=== PATIENT | female | born 1935 | race Caucasian/White ===

== ENCOUNTER 2018-01-22 06:51 | Day surgery (SDC) | payer OTHER ==
[2018-01-22] MEDS ORDERED: NA CHLORIDE 0.9% 1,000 ML ONE (06:58)
[2018-01-22] MEDS ORDERED: NA CHLORIDE 0.9% 0 ML IV ONE (09:33)
[2018-01-22] MEDS ORDERED: NA CHLORIDE 0.9% 50 ML ONE (09:34)
[2018-01-22] MEDS ORDERED: LIDOCAINE 1% W/EPI 1:100,000 MDV 50 ML VIAL ONE (09:34)
[2018-01-22] MEDS ORDERED: VASOPRESSIN 20 UNIT/ML VIAL ONE (09:34)
[2018-01-22] MEDS ORDERED: PROPOFOL 200 MG/20 ML VIAL IV ONE (09:48)
[2018-01-22] MEDS ORDERED: LIDOCAINE 2% MPF 5 ML VIAL ONE (09:51)
[2018-01-22] MEDS ORDERED: FENTANYL CITR 100 MCG/2 ML ONE (09:52)
[2018-01-22] MEDS ORDERED: ONDANSETRON HCL 40 MG/20 ML VIAL ONE (10:02)
[2018-01-22] MEDS ORDERED: CEFAZOLIN SODIUM 1 GM/VIAL ONE (10:48)
[2018-01-22] MEDS: MEPERIDINE HCL 50 MG/ML AMP ONE ×2 (11:01→11:08)
[2018-01-22 12:03] VITALS: BP 142/64; TEMP 97.8; O2SAT 98
== END 2018-01-22 12:40 | disposition home or self-care (01) ==
LOC: OR 06:51
PROVIDERS: ATTEND Obstetrics & Gynecology
PROC: 0UBM0ZZ Excision of Vulva, Open Approach (ICD-10-PCS; principal; 2018-01-22 08:30)
DX: N90.1 Moderate vulvar dysplasia (principal); I50.20 Unspecified systolic (congestive) heart failure; I48.91 Unspecified atrial fibrillation; E11.9 Type 2 diabetes mellitus without complications; E03.9 Hypothyroidism, unspecified
CPT/HCPCS: 11420; 11424; 82962 ×2; 88305; J0690; J2175; J2405; J3010; J7030

== ENCOUNTER 2021-05-10 19:40 | Inpatient (IN) | payer OTHER ==
[2021-05-10 21:21] LABS: Urine Blood 2+ (Negative); Urine Glucose Negative (Negative); Urine Protein 2+ (Negative); Urine pH 5.5 (5.0-7.0)
[2021-05-10 21:23] LABS: Absolute Lymphocytes (CBC) 1.3 K/uL (0.7-4.9); Basophils % 0.6 % (0-1.3); Hematocrit 37.3 % (36.0-45.0); Lymphocytes % 8.5 % (15.3-44.8); MPV 8.3 fL (7.6-11.3); RBC Red Blood Cell Count 4.33 M/uL (3.86-4.86)
[2021-05-10] MEDS ORDERED: NA CHLORIDE 0.9% 500 ML ONE (21:32)
[2021-05-10 21:40] LABS: ALT/SGPT 16 U/L (12-78); AST/SGOT 13 U/L (15-37); Albumin 3.1 g/dL (3.4-5.0); Alkaline Phosphatase 68 U/L (45-117); BUN Blood Urea Nitrogen 25 mg/dL (7-18); Bicarbonate 24 mmol/L (21-32); Bilirubin Direct < 0.1 mg/dL (0-0.2); Bilirubin Total 0.2 mg/dL (0.2-1.0); Glucose Level 152 mg/dL (74-106); Lipase 205 U/L (73-393); Potassium 4.7 mmol/L (3.5-5.1); Protein, Total 7.3 g/dL (6.4-8.2); Sodium Level 138 mmol/L (136-145)
[2021-05-10 21:46] LABS: Urine Bacteria 20-50 /HPF (<20); Urine Mucus 2+ /HPF (NONE SEEN)
[2021-05-10] MEDS ORDERED: CEFTRIAXONE 1000 MG/VIAL ONE (21:57)
--- NOTE | 2021-05-11 00:16 | EDPHYS ---
Physician Documentation [facility] Name: Yumiko Mayes Age: 86 yrs Sex: Female : 1935 Arrival Date: 05/10/2021 Time: 19:45 Bed 24 Private MD: ED Physician David Long HPI: 05/10 20:40 This 86 yrs old Female presents to ER via Ambulatory with complaints of mh7 Urinary Problem, Abdominal Pain. 20:40 The patient presents with urinary symptoms, dysuria. Onset: The symptoms/episode mh7 began/occurred 2 week(s) ago. Modifying factors: The symptoms are alleviated by nothing, the symptoms are aggravated by urinating. Associated signs and symptoms: Pertinent positives: dysuria, nausea, Pertinent negatives: constipation, cramping, diarrhea, fever, hematuria, urinary frequency, vaginal bleeding, vaginal discharge, vomiting. Severity of symptoms: At their worst the symptoms were moderate, 5 day(s) ago, in the emergency department the symptoms are unchanged. The patient has experienced similar episodes in the past, multiple times. Historical: - Allergies: 20:05 No Known Allergies; wg - Home Meds: 21:40 iron 27 mg daily daily [Active]; Vitamin C 1,000 mg oral TbER 1,000 mg daily [Active]; df1 metformin 500 mg Oral tab 1 tab 2 times per day [Active]; flecaide 50 mg BID [Active]; pravastatin 40 mg Oral tab 1 tab once daily [Active]; gemfibrozil 600 mg Oral tab 1 tab 2 times per day [Active]; metoprolol tartrate 50 mg Oral tab 1 tab once daily [Active]; levothyroxine 50 mcg tab 1 tab once daily [Active]; Xarelto 15 mg oral tab 1 tab once daily [Active]; - PMHx: 20:05 Atrial Fib; COPD; Hyperlipidemia; Hypertension; upper GI bleed; wg 21:16 uterine cancer; df1 - PSHx: 21:16 breast implant bilateral; pacemaker; Total abdominal hysterectomy; df1 - Immunization history:: Adult Immunizations up to date. - Social history:: Smoking status: Patient denies any tobacco usage or history of. ROS: 20:40 Constitutional: Negative for fever, chills, and weight loss, Eyes: Negative for injury, mh7 pain, redness, and discharge, ENT: Negative for injury, pain, and discharge, Neck: Negative for injury, pain, and swelling, Cardiovascular: Negative for chest pain, palpitations, and edema, Respiratory: Negative for shortness of breath, cough, wheezing, and pleuritic chest pain, Back: Negative for injury and pain, MS/Extremity: Negative for injury and deformity, Skin: Negative for injury, rash, and discoloration, Neuro: Negative for headache, weakness, numbness, tingling, and seizure, Psych: Negative for depression, anxiety, suicide ideation, homicidal ideation, and hallucinations, Allergy/Immunology: Negative for hives, rash, and allergies, Endocrine: Negative for neck swelling, polydipsia, polyuria, polyphagia, and marked weight changes, Hematologic/Lymphatic: Negative for swollen nodes, abnormal bleeding, and unusual bruising. Exam: 20:40 Constitutional: This is a well developed, well nourished patient who is awake, alert, mh7 and in no acute distress. Head/Face: Normocephalic, atraumatic. Eyes: Pupils equal round and reactive to light, extra-ocular motions intact. Lids and lashes normal. Conjunctiva and sclera are non-icteric and not injected. Cornea within normal limits. Periorbital areas with no swelling, redness, or edema. Neck: Trachea midline, no thyromegaly or masses palpated, and no cervical lymphadenopathy. Supple, full range of motion without nuchal rigidity, or vertebral point tenderness. No Meningismus. Chest/axilla: Normal chest wall appearance and motion. Nontender with no deformity. No lesions are appreciated. Cardiovascular: Regular rate and rhythm with a normal S1 and S2. No gallops, murmurs, or rubs. Normal PMI, no JVD. No pulse deficits. Respiratory: Lungs have equal breath sounds bilaterally, clear to auscultation and percussion. No rales, rhonchi or wheezes noted. No increased work of breathing, no retractions or nasal flaring. Abdomen/GI: Soft, non-tender, with normal bowel sounds. No distension or tympany. No guarding or rebound. No evidence of tenderness throughout. Back: No spinal tenderness. No costovertebral tenderness. Full range of motion. Skin: Warm, dry with normal turgor. Normal color with no rashes, no lesions, and no evidence of cellulitis. MS/ Extremity: Pulses equal, no cyanosis. Neurovascular intact. Full, normal range of motion. Neuro: Awake and alert, GCS 15, oriented to person, place, time, and situation. Cranial nerves II-XII grossly intact. Motor strength 5/5 in all extremities. Sensory grossly intact. Cerebellar exam normal. Normal gait. Psych: Awake, alert, with orientation to person, place and time. Behavior, mood, and affect are within normal limits. Vital Signs: 19:59 BP 124 / 41; Pulse 60; Resp 18; Temp 98.9; Pulse Ox 100% on R/A; Weight 67.59 kg; wg Height 5 ft. 6 in. (167.64 cm); Pain 5/10; 21:15 BP 128 / 47; Pulse 60; Resp 18; Pulse Ox 98% on R/A; df1 22:37 BP 147 / 49; Pulse 61; Resp 18; Pulse Ox 97% on R/A; df1 23:18 BP 132 / 49; Pulse 60; Resp 18; Pulse Ox 96% on R/A; df1 05/11 00:24 BP 136 / 50; Pulse 60; Resp 18; Pulse Ox 100% on R/A; df1 01:17 BP 135 / 50; Pulse 65; Resp 18; Pulse Ox 96% on R/A; df1 05/10 19:59 Body Mass Index 24.05 (67.59 kg, 167.64 cm) MDM: 00:12 Differential diagnosis: kidney stone, malignancy, Neoplasm nonspecific abdominal pain, [facility] urinary tract infection. Data reviewed: vital signs, nurses notes, lab test result(s), CBC, electrolytes, urinalysis, EKG, radiologic studies, CT scan. Data interpreted: Pulse oximetry: on room air is 96 %. Interpretation: normal. Counseling: I had a detailed discussion with the patient and/or guardian regarding: the historical points, exam findings, and any diagnostic results supporting the discharge/admit diagnosis, lab results, radiology results, the need for further work-up and treatment in the hospital. Response to treatment: the patient's symptoms have mildly improved after treatment. 00:16 Patient medically screened. [facility] 05/10 20:07 Order name: Basic Metabolic Panel; Complete Time: 21:50 05/10 20:07 Order name: CBC with Diff; Complete Time: 21:50 05/10 20:07 Order name: Hepatic Function; Complete Time: 21:50 05/10 20:07 Order name: Lipase; Complete Time: 21:50 05/10 20:53 Order name: Urine Microscopic Only [facility] 05/10 20:53 Order name: Urine Culture [facility] 05/10 20:53 Order name: Urine Microscopic Only; Complete Time: 21:50 [facility] 05/10 20:54 Order name: Urine Culture [facility] 05/10 21:21 Order name: Urine Dipstick-Ancillary; Complete Time: 21:22 [facility] 05/10 22:00 Order name: CT Abd/Pelvis - Without Contrast [facility] 05/11 00:28 Order name: COVID-19 : Document "Date of Symptom Onset" if Symptomatic. 3 05/11 01:52 Order name: SARS-COV-2 RT PCR [facility] 05/11 02:14 Order name: CORONAVIRUS [facility] 05/10 20:07 Order name: IV Saline Lock; Complete Time: 21:04 05/10 20:07 Order name: Labs collected and sent; Complete Time: 21:04 05/10 20:07 Order name: Urine Dipstick-Ancillary (obtain specimen); Complete Time: 21:08 05/10 20:07 Order name: Bladder Scanner; Complete Time: 23:07 05/10 22:55 Order name: EKG; Complete Time: 22:55 [facility] 05/10 22:55 Order name: EKG - Nurse/Tech; Complete Time: 23:17 7 Administered Medications: 05/10 21:08 Drug: NS 0.9% 500 ml Route: IV; Rate: bolus; Site: right antecubital; df1 21:58 Follow up: IV Status: Completed infusion; IV Intake: 500ml [facility] 05/11 00:23 Follow up: IV Status: Completed infusion; IV Intake: 500ml [facility] 05/10 21:34 Drug: Rocephin (cefTRIAXone) 1 grams Route: IV; Rate: per protocol; Site: right 1 antecubital; 21:58 Follow up: Response: No adverse reaction; IV Status: Completed infusion df 05/11 00:23 Follow up: Response: No adverse reaction [facility] 00:39 Drug: Cefepime 1 grams Route: IVPB; Rate: 200 ml/hr; Infused Over: 30 mins; Site: right df1 antecubital; 01:16 Follow up: Response: No adverse reaction; IV Status: Completed infusion; IV Intake: df1 100ml Disposition Summary: 05/11/21 00:16 Hospitalization Ordered Hospitalization Status: Inpatient Admission [facility] Provider: Amarjit Freed [facility] Condition: Stable [facility] Problem: new [facility] Symptoms: have improved [facility] Bed/Room Type: Standard [facility] Room Assignment: 219(05/11/21 01:58) mw Diagnosis - UTI/ Urinary tract infection, site not specified [facility] - Leukocytosis [facility] Forms: - Medication Reconciliation Form [facility] - SBAR form [facility] Signatures: Dispatcher [employer] Yumiko Aguirre RN RN mw Attema, Lee, INFORMATION SECURITY SPECIALIST-C INFORMATION SECURITY SPECIALIST-Cla1 David Long MD MD [facility] Rubens Bragg RN wg Furlich, Dawn df1 Corrections: (The following items were deleted from the chart) 01:58 00:16 [facility] mw
--- NOTE | 2021-05-11 00:16 | ER ---
Nurse's Notes [facility] Name: Yumiko Mayes Age: 86 yrs Sex: Female : 1935 Arrival Date: 05/10/2021 Time: 19:45 Bed 24 Private MD: Diagnosis: UTI/ Urinary tract infection, site not specified;Leukocytosis Presentation: 05/10 19:59 Chief complaint: Patient states: Pt states she believes she has a UTI. States she has wg pain in her abdomen/bladder, urgency/frequency and minimal output. Pt states she has decreased fluid retention in her legs. 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 Pt denies any other complaints at this time. Coronavirus screen: Vaccine status: Patient reports receiving the 2nd dose of the covid vaccine. Date October 2020 Client denies travel out of the [place] in the last 14 days. At this time, the client does not indicate any symptoms associated with coronavirus-19. Ebola Screen: Patient negative for fever greater than or equal to 101.5 degrees Fahrenheit, and additional compatible Ebola Virus Disease symptoms Patient denies exposure to infectious person. Patient denies travel to an Ebola-affected area in the 21 days before illness onset. Initial Sepsis Screen: Does the patient meet any 2 criteria? No. Patient's initial sepsis screen is negative. Does the patient have a suspected source of infection? No. Patient's initial sepsis screen is negative. Risk Assessment: Do you want to hurt yourself or someone else? Patient reports no desire to harm self or others. Onset of symptoms was April 26, 2021. 19:59 Method Of Arrival: Ambulatory 19:59 Acuity: AL 3 05/11 01:06 Note Sons contact info Walker Mayes [phone]. df1 Triage Assessment: 05/10 20:05 General: Appears uncomfortable, well groomed, Behavior is calm, cooperative, agitated. wg Pain: Complains of pain in Abdomen/bladder. GI: Reports lower abdominal pain. : Reports burning with urination, inability to void, pain in suprapubic area with urination. Historical: - Allergies: 20:05 No Known Allergies; wg - Home Meds: 21:40 iron 27 mg daily daily [Active]; Vitamin C 1,000 mg oral TbER 1,000 mg daily [Active]; df1 metformin 500 mg Oral tab 1 tab 2 times per day [Active]; flecaide 50 mg BID [Active]; pravastatin 40 mg Oral tab 1 tab once daily [Active]; gemfibrozil 600 mg Oral tab 1 tab 2 times per day [Active]; metoprolol tartrate 50 mg Oral tab 1 tab once daily [Active]; levothyroxine 50 mcg tab 1 tab once daily [Active]; Xarelto 15 mg oral tab 1 tab once daily [Active]; - PMHx: 20:05 Atrial Fib; COPD; Hyperlipidemia; Hypertension; upper GI bleed; wg 21:16 uterine cancer; df1 - PSHx: 21:16 breast implant bilateral; pacemaker; Total abdominal hysterectomy; df1 - Immunization history:: Adult Immunizations up to date. - Social history:: Smoking status: Patient denies any tobacco usage or history of. Screenin:06 Abuse screen: Denies threats or abuse. Nutritional screening: No deficits noted. df1 Tuberculosis screening: No symptoms or risk factors identified. Fall Risk None identified. Assessment: 21:16 GI: Bowel sounds present X 4 quads. Abd is soft and non tender X 4 quads. df1 21:30 General: Appears in no apparent distress. Behavior is calm, cooperative. Pain: Denies df1 pain. Neuro: No deficits noted. Cardiovascular: No deficits noted. Respiratory: No deficits noted. : Reports burning with urination, since 1 week. EENT: No deficits noted. Derm: No deficits noted. Musculoskeletal: No deficits noted. Vital Signs: 19:59 BP 124 / 41; Pulse 60; Resp 18; Temp 98.9; Pulse Ox 100% on R/A; Weight 67.59 kg; wg Height 5 ft. 6 in. (167.64 cm); Pain 5/10; 21:15 BP 128 / 47; Pulse 60; Resp 18; Pulse Ox 98% on R/A; df1 22:37 BP 147 / 49; Pulse 61; Resp 18; Pulse Ox 97% on R/A; df1 23:18 BP 132 / 49; Pulse 60; Resp 18; Pulse Ox 96% on R/A; df1 05/11 00:24 BP 136 / 50; Pulse 60; Resp 18; Pulse Ox 100% on R/A; df1 01:17 BP 135 / 50; Pulse 65; Resp 18; Pulse Ox 96% on R/A; df1 05/10 19:59 Body Mass Index 24.05 (67.59 kg, 167.64 cm) ED Course: 05/10 19:45 Patient arrived in ED. cf2 20:05 Triage completed. 20:05 Arm band placed on left wrist. 20:13 David Long MD is Attending Physician. 7 21:03 Sheri Weldon is Primary Nurse. df1 21:05 Inserted saline lock: 20 gauge in right. df1 21:06 Patient has correct armband on for positive identification. Placed in gown. Bed in low df1 position. Call light in reach. Side rails up X 1. 21:08 Urine Culture Sent. df1 21:08 Urine Microscopic Only Sent. df1 21:08 Basic Metabolic Panel Sent. df1 21:08 CBC with Diff Sent. df1 21:08 Hepatic Function Sent. df1 21:08 Lipase Sent. df1 22:29 CT Abd/Pelvis - Without Contrast In Process Unspecified. EDMS 05/11 00:15 Amarjit Freed DO is Hospitalizing [facility] 01:16 COVID-19 : Document "Date of Symptom Onset" if Symptomatic. Sent. df1 01:18 No provider procedures requiring assistance completed. Patient admitted, IV remains in df1 place. Administered Medications: 05/10 21:08 Drug: NS 0.9% 500 ml Route: IV; Rate: bolus; Site: right antecubital; df1 21:58 Follow up: IV Status: Completed infusion; IV Intake: 500ml df1 05/11 00:23 Follow up: IV Status: Completed infusion; IV Intake: 500ml df1 05/10 21:34 Drug: Rocephin (cefTRIAXone) 1 grams Route: IV; Rate: per protocol; Site: right df1 antecubital; 21:58 Follow up: Response: No adverse reaction; IV Status: Completed infusion df1 05/11 00:23 Follow up: Response: No adverse reaction df1 00:39 Drug: Cefepime 1 grams Route: IVPB; Rate: 200 ml/hr; Infused Over: 30 mins; Site: right df1 antecubital; 01:16 Follow up: Response: No adverse reaction; IV Status: Completed infusion; IV Intake: df1 100ml Intake: 05/10 21:58 IV: 500ml; Total: 500ml. df1 05/11 00:23 IV: 500ml; Total: 1000ml. df1 01:16 IV: 100ml; Total: 1100ml. df1 Outcome: 00:16 Decision to Hospitalize [facility] 02:03 Admitted to Med/surg accompanied by tech. df1 02:03 Condition: stable 02:03 Instructed on the need for admit. 02:43 Patient left the ED. df1 Signatures: Dispatcher [employer] EDMS William Calabrese 2 David Long MD MD 7 Rubens Bragg RN wg Furlich, Dawn df1
[2021-05-11] MEDS ORDERED: CEFEPIME 1 GM/VIAL ONE ×2 (00:51→20:52)
[2021-05-11] MEDS ORDERED: NA CHLORIDE 0.9% 100 ML ONE ×2 (00:51→22:05)
--- NOTE | 2021-05-11 00:58 | P.HP ---
Certification for Inpatient Patient admitted to: Observation With expected LOS: <2 Midnights Patient will require the following post-hospital care: None Practitioner: I am a practitioner with admitting privileges, knowledge of patient current condition, hospital course, and medical plan of care. Services: Services provided to patient in accordance with Admission requirements found in Title 42 Section 412.3 of the Code of Federal Regulations Patient History Date of Service: 05/11/21 History of Present Illness: 86-year-old female with history of atrial fibrillation on chronic anticoagulation therapy, hypertension, hyperlipidemia, hypothyroidism, diabetes mellitus type 2 presents emergency department for dysuria. Patient reports urinary symptoms over the course of the last 2 weeks, does have previous UTIs. Patient was evaluated emergency room and labs are significant for white blood cell count 14.8 with left shift GFR 41 glucose 152 urinalysis with 20-50 janey teria nitrite +,3+ leukoesterase CT abdomen pelvis without contrast demonstrated prominence of the left renal pelvis/calyceal system with no discernible calculi, findings could correspond to recent passage of a calculus and/or partial left UPJ narrowing, minimal perinephric haziness within the left kidney perhaps suggesting fluid, possible pyelonephritis. Patient with history of UTIs in the past with resistant bacteria including Proteus and Enterococcus previously sensitive to cefepime. Patient was given dose of cefepime emergency room by ED provider wishes to admit under observation for further evaluation and management of urinary tract infection. Urine culture obtained. Allergies No Known Drug Allergies Allergy (Verified 01/17/18 13:06) Unknown Home Medications: Gemfibrozil [Lopid] 600 mg PO BID #0 tablet 04/26/12 Pravastatin [Pravachol*] 40 mg PO BEDTIME 07/08/14 Levothyroxine [Synthroid*] 50 mcg PO [id number] 11/08/16 Metformin ER [Glucophage ER*] 500 mg PO BID 11/08/16 Metoprolol Tartrate 50 mg PO [id number] 11/08/16 Omeprazole 40 mg PO DAILY 11/08/16 Ascorbic Acid [Vitamin C] 500 mg PO DAILY 01/17/18 Cholecalciferol (Vitamin D3) [Vitamin D 1000 Iu Tab] 1,000 unit PO DAILY 01/17/18 Ferrous Sulfate [Iron] 325 mg PO DAILY 01/17/18 Flecainide [Tambocor] 50 mg PO BID 01/17/18 Rivaroxaban [Xarelto] 15 mg PO DAILY 01/17/18 - Past Medical/Surgical History Diabetic: No -: hyperlipidemia -: hypothyroidism -: HTN -: Atrial fibrillation on anticoagulation -: Pacemaker -: Diabetes mellitus type 2 -: GERD -: skin cancer -: ovarian cancer -: CKD 3 -: pacemaker -: hysterectomy -: breast implants -: tumor removed from R leg "fatty tumor" -: appy Psychosocial/ Personal History: Lives alone at home - Family History Mother Notes: unsure on mother's medical history Sister -: Lung disease, Cancer Notes: FAther and 2 sister from emphysema, sister had cancer patient does not know which type Father -: Lung disease - Social History Smoking Status: Former smoker Alcohol use: No CD- Drugs: No Caffeine use: Yes Place of Residence: Home Review of Systems 10-point ROS is otherwise unremarkable Genitourinary: Dysuria, Frequency, Urgency, As per HPI Physical Examination - Physical Exam General: Alert, In no apparent distress, Oriented x3 HEENT: Atraumatic, PERRLA, Mucous membr. moist/pink, EOMI, Sclerae nonicteric Neck: Supple, 2+ carotid pulse no bruit, No LAD, Without JVD or thyroid abnormality Respiratory: Clear to auscultation bilaterally, Normal air movement Cardiovascular: Regular rate/rhythm, Normal S1 S2 Gastrointestinal: Normal bowel sounds, No tenderness Musculoskeletal: No tenderness Integumentary: No rashes Neurological: Normal speech, Normal strength at 5/5 x4 extr, Normal tone, Normal affect Lymphatics: No axilla or inguinal lymphadenopathy - Studies Laboratory Data (last 24 hrs) 05/10/21 21:00: WBC 14.80 H, Hgb 12.2, Hct 37.3, Plt Count 341 05/10/21 21:00: Sodium 138, Potassium 4.7, BUN 25 H, Creatinine 1.23, Glucose 152 H, Total Bilirubin 0.2, AST 13 L, ALT 16, Alkaline Phosphatase 68, Lipase 205 Assessment and Plan - Plan Assessment: UTI with history of resistant bacteria-possible early pyelonephritis Atrial fibrillation on chronic anticoagulation therapy Diabetes type 2 with hyperglycemia CKD 3 Hypertension Hyperlipidemia Hypothyroidism Plan: UTI with history of resistant bacteria-possible early pyelonephritis: Previous urine cultures with Proteus/Enterococcus sensitive to cefepime. Continue with IV cefepime at this time urine culture obtained with consult for elevated we will monitor daily labs. Patient without any abdominal or CVA tenderness on exam at this time. Atrial fibrillation on chronic anticoagulation therapy: Continue home medications, monitor on telemetry Diabetes type 2 with hyperglycemia: [facility] Accu-Chek, sliding scale insulin CKD 3: Stable renal function from previous continue with gentle hydration, monitor daily labs Hypertension: Continue home medications Hyperlipidemia:Continue home medications Hypothyroidism:Continue home medications DVT PPX: Continue Xarelto Code status: DNR Discharge Plan: Home Plan to discharge in: 24 Hours - Advance Directives Does patient have a Living Will: No Does patient have a Durable POA for Healthcare: Yes - Code Status/Comfort Care Code Status Assessed: Yes (DNR) Critical Care: No Time Spent Managing Pts Care (In Minutes): 55
[2021-05-11] MEDS ORDERED: ACETAMINOPHEN 500 MG TAB PO PRN (02:14)
[2021-05-11] MEDS ORDERED: ONDANSETRON 4 MG/2 ML VIAL IV PRN (02:14)
[2021-05-11 02:54] VITALS: BMI 24.0
[2021-05-11] MEDS: NA CHLORIDE 0.9% 1,000 ML IV SCH ×2 (03:51→16:51)
--- NOTE | 2021-05-11 06:04 | P.PN ---
Subjective Date of Service: 05/11/21 Primary Care Provider: Dr. Castellanos Subjective: Improving, Doing well Physical Examination - Vital Signs Temperature: 98.6 F Blood Pressure: 150/48 Pulse: 63 Respirations: 16 - Studies Laboratory Data (last 24 hrs) 05/10/21 21:00: WBC 14.80 H, Hgb 12.2, Hct 37.3, Plt Count 341 05/10/21 21:00: Sodium 138, Potassium 4.7, BUN 25 H, Creatinine 1.23, Glucose 152 H, Total Bilirubin 0.2, AST 13 L, ALT 16, Alkaline Phosphatase 68, Lipase 205 Assessment & Plan Discharge Plan: Home Plan to discharge in: 48 Hours Physician Review Additional Text: COVID: negative CT scan: COMPARISON: None TECHNIQUE: Multiple transaxial tomograms of the abdomen and pelvis were performed from the lung bases to the symphysis pubis 5 m slice thickness at 5 mm interval reconstruction, without administration of IV and oral contrast. Multiplanar reformats in the sagittal and coronal plane were generated and reviewed. This exam was performed according to our departmental dose-optimization protocol, which includes automated exposure control, adjustment of the mA and/or kV according to patient size and/or use of iterative reconstruction technique. FINDINGS: The lack of IV and oral contrast limits evaluation of solid organs, subtle lesions cannot be excluded. The lung bases demonstrate to be clear. The heart demonstrate coronary artery calcifications. There is a dual-lead pacemaker in place. Breast implants with the minimal rim wall calcification. Grossly the unopacified liver, gallbladder, pancreas, spleen and adrenal glands demonstrate to be within normal limits, no significant focal lesions were identified. The the right kidney demonstrate to be unremarkable. There is no evidence for nephrolithiasis and/or hydronephrosis. The left kidney demonstrate prominence of the left renal pelvis/calyceal system with no discernible calculi, findings could correspond to recent passage of a calculus and/or partial left UPJ narrowing. There is minimal perinephric haziness within the left kidney perhaps suggesting fluid. Grossly the unopacified stomach, small bowel and large bowel demonstrate to be within normal limits. There is no evidence for bowel dilatation/or free air. The urinary bladder was partially distended with no gross abnormalities. The uterus is absent. There are no adnexal masses The aorta demonstrate atherosclerotic disease extending into the aortic bifurcation. There is no retroperitoneal lymphadenopathy. There is no evidence for ascites. The bone windows demonstrate diffuse bony osteopenia. Degenerative disc disease throughout the lumbar spine. IMPRESSION: Prominence of the left renal pelvis/calyceal system with no discernible calculi, findings could correspond to recent passage of a calculus and/or partial left UPJ narrowing. There is minimal perinephric haziness within the left kidney perhaps suggesting fluid. Atherosclerotic disease of the aorta. Status post hysterectomy. Physical Exam: General: Alert, In no apparent distress, Oriented x3 HEENT: Neck supple Respiratory: Clear to auscultation bilaterally, Normal air movement Cardiovascular: Regular rate/rhythm, Normal S1 S2 Gastrointestinal: Normal bowel sounds, No tenderness Musculoskeletal: No tenderness Integumentary: No rashes Neurological: Normal speech, Normal strength at 5/5 x4 extr, Normal tone, Normal affect Lymphatics: No axilla or inguinal lymphadenopathy Impression: UTI with history of resistant bacteria-possible early pyelonephritis Atrial fibrillation on chronic anticoagulation therapy Diabetes type 2 with hyperglycemia CKD 3 Hypertension Hyperlipidemia Hypothyroidism Plan: UTI with history of resistant bacteria-possible early pyelonephritis: Patient doing at this time. Previous urine culture reviewed. Prior Proteus, Enterococcus in the past. Continue IV cefepime. Await urine culture results. Patient reports improvement. Likely home in the next 24 to 48 hours with urine culture pending. Atrial fibrillation on chronic anticoagulation therapy: Patient in normal rhythm. Continue with home medicationXarelto. Need to obtain restart home medication. Diabetes type 2 with hyperglycemia: Continue Accu-Cheks and sliding scale. CKD 3: Renal function stable. Continue monitor closely. Hypertension: Need to obtain restart home medication Hyperlipidemia: Need to obtain restart home medication Hypothyroidism: Need to obtain restart home medication DVT PPX: Continue Xarelto Code status: DNR Discharge Plan: Home at discharge Time Spent Managing Pts Care (In Minutes): 55
[2021-05-11 06:20] LABS: Absolute Lymphocytes (CBC) 1.2 K/uL (0.7-4.9); Basophils % 0.3 % (0-1.3); Hematocrit 33.2 % (36.0-45.0); MPV 8.2 fL (7.6-11.3); RBC Red Blood Cell Count 3.89 M/uL (3.86-4.86)
[2021-05-11 06:55] LABS: Albumin 2.6 g/dL (3.4-5.0); Bilirubin Total 0.2 mg/dL (0.2-1.0); Potassium 4.3 mmol/L (3.5-5.1); Protein, Total 6.5 g/dL (6.4-8.2); Thyroid Stimulating Hormone 0.413 uIU/mL (0.360-3.740)
[2021-05-11] MEDS: INSULIN -REGULAR HUMAN 50 UNIT/0.5 ML ML SQ SCH ×4 (07:30→21:00)
[2021-05-11] MEDS ORDERED: CEFEPIME 1 GM/VIAL IV SCH (09:00)
[2021-05-11] MEDS: FAMOTIDINE 20 MG TAB PO SCH (11:00)
--- NOTE | 2021-05-11 11:55 | RAD REPORT ---
EXAM DESCRIPTION: CT - Abdomen Pelvis Wo Contrast - 05/11/2021 6:31 am CLINICAL HISTORY: 86 years, Female, Abd pain;Hematuria COMPARISON: None TECHNIQUE: Multiple transaxial tomograms of the abdomen and pelvis were performed from the lung base s to the symphysis pubis 5 m slice thickness at 5 mm interval reconstruction, without administration of IV and oral contrast. Multiplanar reformats in the sagittal and coronal plane were generated and reviewed. This exam was performed according to our departmental dose-optimization protocol, which includes auto mated exposure control, adjustment of the mA and/or kV according to patient size and/or use of iterat grant reconstruction technique. FINDINGS: The lack of IV and oral contrast limits evaluation of solid organs, subtle lesions cannot be excluded. The lung bases demonstrate to be clear. The heart demonstrate coronary artery calcifications. There i s a dual-lead pacemaker in place. Breast implants with the minimal rim wall calcification. Grossly the unopacified liver, gallbladder, pancreas, spleen and adrenal glands demonstrate to be wit hin normal limits, no significant focal lesions were identified. The the right kidney demonstrate to be unremarkable. There is no evidence for nephrolithiasis and/or hydronephrosis. The left kidney demonstrate prominence of the left renal pelvis/calyceal system with no discernible c alculi, findings could correspond to recent passage of a calculus and/or partial left UPJ narrowing. There is minimal perinephric haziness within the left kidney perhaps suggesting fluid. Grossly the unopacified stomach, small bowel and large bowel demonstrate to be within normal limits. There is no evidence for bowel dilatation/or free air. The urinary bladder was partially distended with no gross abnormalities. The uterus is absent. There are no adnexal masses The aorta demonstrate atherosclerotic disease extending into the aortic bifurca tion. There is no retroperitoneal lymphadenopathy. There is no evidence for ascites. The bone win dows demonstrate diffuse bony osteopenia. Degenerative disc disease throughout the lumbar spine. IMPRESSION: Prominence of the left renal pelvis/calyceal system with no discernible calculi, finding s could correspond to recent passage of a calculus and/or partial left UPJ narrowing. There is minima l perinephric haziness within the left kidney perhaps suggesting fluid. Atherosclerotic disease of the aorta. Status post hysterectomy. Electronically signed by: Gregg Parks MD 05/10/2021 10:46 PM CDT Due to temporary technical issues with the PACS/Fluency reporting system, reports are being signed by the in house radiologists without review as a courtesy to insure prompt reporting. The interpreting radiologist is fully responsible for the content of the report.
[2021-05-11] MEDS ORDERED: NA CHLORIDE 0.9% 250 ML IV ONE (16:35)
[2021-05-11] MEDS: FLECAINIDE 100 MG TAB PO SCH (16:51)
--- NOTE | 2021-05-11 16:58 | EKG ---
Test Date: 2021-05-10 Test Time: 23:13:08 Big Machine Consultant: ANA MEASUREMENT RESULTS: Intervals: Rate: 60 VT: QRSD: 88 QT: 440 QTc: 440 [place]: P: VT: QRS: 118 T: 83 INTERPRETIVE STATEMENTS: Junctional rhythm Left posterior fascicular block Cannot rule out Anterior infarct, age undetermined Abnormal ECG Compared to ECG 11/08/2016 12:24:37 Junctional rhythm now present Left posterior fascicular block now present Sinus rhythm no longer present Myocardial infarct finding still present Electronically Signed On 05-11-21 16:57:49 CDT by Dionicio Patterson
[2021-05-11] MEDS ORDERED: NA CHLORIDE 0.9% 500 ML IV ONE (17:00)
[2021-05-11] MEDS ORDERED: NA CHLORIDE 0.9% 250 ML IV PRN (17:38)
[2021-05-11] MEDS: RIVAROXABAN 15 MG TABLET PO SCH (18:48)
[2021-05-11] MEDS: gemfibroziL 600 MG TAB PO SCH (20:26)
[2021-05-11] MEDS: ATORVASTATIN 10 MG TAB PO SCH (20:26)
[2021-05-11] MEDS ORDERED: FLECAINIDE 100 MG TAB PO SCH (21:00)
[2021-05-11] MEDS ORDERED: HOME MED 1 EA UNK (Pravastatin [Pravachol*] 40 MG/TAB Tab) PO SCH (21:00)
[2021-05-11] MEDS: CEFEPIME 1 GM/100 ML BAG IV SCH (21:44)
[2021-05-12] MEDS ORDERED: METOPROLOL TARTRATE 5 MG/5 ML INJ IV STA (00:12)
[2021-05-12] MEDS: LEVOTHYROXINE SOD 0.05 MG TABLET PO SCH (05:20)
[2021-05-12] MEDS: NA CHLORIDE 0.9% 1,000 ML IV SCH (05:20)
[2021-05-12] MEDS: METOPROLOL TAR 50 MG TAB PO SCH (05:20)
--- NOTE | 2021-05-12 05:59 | P.PN ---
Subjective Date of Service: 05/12/21 Primary Care Provider: Dr. Castellanos Subjective: Improving (Anxiety noted today. Overall stable.) Physical Examination - Vital Signs Temperature: 98.7 F Blood Pressure: 128/61 Pulse: 109 Respirations: 20 Pulse Ox (%): 90 Assessment & Plan Discharge Plan: Home Plan to discharge in: 24 Hours Physician Review Additional Text: COVID: negative CT scan: COMPARISON: None TECHNIQUE: Multiple transaxial tomograms of the abdomen and pelvis were performed from the lung bases to the symphysis pubis 5 m slice thickness at 5 mm interval reconstruction, without administration of IV and oral contrast. Multiplanar reformats in the sagittal and coronal plane were generated and reviewed. This exam was performed according to our departmental dose-optimization protocol, which includes automated exposure control, adjustment of the mA and/or kV according to patient size and/or use of iterative reconstruction technique. FINDINGS: The lack of IV and oral contrast limits evaluation of solid organs, subtle lesions cannot be excluded. The lung bases demonstrate to be clear. The heart demonstrate coronary artery calcifications. There is a dual-lead pacemaker in place. Breast implants with the minimal rim wall calcification. Grossly the unopacified liver, gallbladder, pancreas, spleen and adrenal glands demonstrate to be within normal limits, no significant focal lesions were identified. The the right kidney demonstrate to be unremarkable. There is no evidence for nephrolithiasis and/or hydronephrosis. The left kidney demonstrate prominence of the left renal pelvis/calyceal system with no discernible calculi, findings could correspond to recent passage of a calculus and/or partial left UPJ narrowing. There is minimal perinephric haziness within the left kidney perhaps suggesting fluid. Grossly the unopacified stomach, small bowel and large bowel demonstrate to be within normal limits. There is no evidence for bowel dilatation/or free air. The urinary bladder was partially distended with no gross abnormalities. The uterus is absent. There are no adnexal masses The aorta demonstrate atherosclerotic disease extending into the aortic bifurcation. There is no retroperitoneal lymphadenopathy. There is no evidence for ascites. The bone windows demonstrate diffuse bony osteopenia. Degenerative disc disease throughout the lumbar spine. IMPRESSION: Prominence of the left renal pelvis/calyceal system with no discernible calculi, findings could correspond to recent passage of a calculus and/or partial left UPJ narrowing. There is minimal perinephric haziness within the left kidney perhaps suggesting fluid. Atherosclerotic disease of the aorta. Status post hysterectomy. Physical Exam: General: Alert, In no apparent distress, Oriented x3 HEENT: Neck supple Respiratory: Clear to auscultation bilaterally, Normal air movement Cardiovascular: Atrial fibrillation rate around 100 Gastrointestinal: Normal bowel sounds, No tenderness Musculoskeletal: No tenderness Integumentary: No rashes Neurological: Normal speech, Normal strength at 5/5 x4 extr, Normal tone, Normal affect Lymphatics: No axilla or inguinal lymphadenopathy Impression: UTI with history of resistant bacteria-possible early pyelonephritis, urine culture positive for gram-negative rods Atrial fibrillation on chronic anticoagulation therapy Diabetes type 2 with hyperglycemia Acute on CKD 3 Hypertension Hyperlipidemia Hypothyroidism GERD Anxiety Plan: UTI with history of resistant bacteria-possible early pyelonephritis, urine culture positive for gram-negative rods: Patient improved today. Await urine culture results. Prior cultures show Proteus and Enterococcus. Continue IV antibiotic therapy. Case discussed in detail with patient and son. We will physical therapy assess ambulation. Patient has home health and physical therapy. This will need to be continued at discharge. Some anxiety noted. Provide medication for anxiety. Anticipate likely discharge tomorrow. Atrial fibrillation on chronic anticoagulation therapy: Patient had accelerated heart rate yesterday as medication from home needed to be restarted. Medication reviewed. Patient to continue flecainide 50 twice daily and metoprolol 50 daily. Patient also on Xarelto 15 mg daily. Diabetes type 2 with hyperglycemia: Continue sliding scale Acute on CKD 3: Renal function improved with IV fluid hydration. Will discont inue IV fluids. 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 Hypertension: Continue metoprolol 50 mg daily Hyperlipidemia: Continue Lopid 600 mg 1 pill twice daily Hypothyroidism: Continue levothyroxine 50 mcg daily GERD: Continue with Prilosec daily Anxiety: We will provide Xanax as needed DVT PPX: Continue Xarelto Code status: DNR Discharge Plan: Continue home health and physical therapy at discharge Time Spent Managing Pts Care (In Minutes): 55
[2021-05-12 06:39] LABS: Absolute Lymphocytes (CBC) 1.1 K/uL (0.7-4.9); Basophils % 0.5 % (0-1.3); Hematocrit 35.9 % (36.0-45.0); Lymphocytes % 8.7 % (15.3-44.8); MPV 8.3 fL (7.6-11.3); RBC Red Blood Cell Count 4.16 M/uL (3.86-4.86)
[2021-05-12 07:04] LABS: Albumin 2.4 g/dL (3.4-5.0); Bilirubin Total 0.3 mg/dL (0.2-1.0); Protein, Total 6.5 g/dL (6.4-8.2)
[2021-05-12] MEDS: INSULIN -REGULAR HUMAN 50 UNIT/0.5 ML ML SQ SCH ×4 (07:30→20:26)
[2021-05-12 08:10] LABS: Platelet Estimate ADEQ; Platelets, Giant FEW
[2021-05-12 08:11] LABS: Blood Morphology Comment NOT SEEN (NOT SEEN)
[2021-05-12] MEDS: VITAMIN D 1000 UNIT TAB PO SCH (08:19)
[2021-05-12] MEDS: gemfibroziL 600 MG TAB PO SCH ×2 (08:19→21:12)
[2021-05-12] MEDS: FLECAINIDE 100 MG TAB PO SCH ×2 (08:19→21:12)
[2021-05-12] MEDS: FAMOTIDINE 20 MG TAB PO SCH (08:19)
[2021-05-12] MEDS: ASCORBIC ACID 500 MG TABLET PO SCH (08:19)
--- NOTE | 2021-05-12 11:43 | P.CNS ---
Date of Consult: 05/12/21 Reason for Consult: ARELI Requesting Physician: Amarjit Freed Primary Care Provider: Dr. Castellanos Chief Complaint: Dysuria History of Present Illness: 86-year-old female with history of atrial fibrillation on chronic anticoagulation therapy, hypertension, hyperlipidemia, hypothyroidism, diabetes mellitus type 2 presents emergency department for dysuria. Patient reports urinary symptoms over the course of the last 2 weeks, does have previous UTIs. Patient was evaluated emergency room and labs are significant for white blood cell count 14.8 with left shift GFR 41 glucose 152 urinalysis with 20-50 bacteria nitrite +,3+ leukoesterase CT abdomen pelvis without contrast demonstrated prominence of the left renal pelvis/calyceal system with no discernible calculi, findings could correspond to recent passage of a calculus and/or partial left UPJ narrowing, minimal perinephric haziness within the left kidney perhaps suggesting fluid, possible pyelonephritis. Patient with history of UTIs in the past with resistant bacteria including Proteus and Enterococcus previously sensitive to cefepime. Patient was given dose of cefepime emergency room by ED provider wishes to admit under observation for further evaluation and management of urinary tract infection. Urine culture obtained. 20:40 This 86 yrs old Female presents to ER via Ambulatory with complaints of mh7 Urinary Problem, Abdominal Pain. 20:40 The patient presents with urinary symptoms, dysuria. Onset: The symptoms/episode mh7 began/occurred 2 week(s) ago. Modifying factors: The symptoms are alleviated by nothing, the symptoms are aggravated by urinating. Associated signs and symptoms: Pertinent positives: dysuria, nausea, Pertinent negatives: constipation, cramping, diarrhea, fever, hematuria, urinary frequency, vaginal bleeding, vaginal discharge, vomiting. Severity of symptoms: At their worst the symptoms were moderate, 5 day(s) ago, in the emergency department the symptoms are unchanged. The patient has experienced similar episodes in the past, multiple times. Allergies No Known Drug Allergies Allergy (Verified 01/17/18 13:06) Unknown Home medications list reviewed: Yes Home Medications: Gemfibrozil [Lopid] 600 mg PO BID #0 tablet 04/26/12 Pravastatin [Pravachol*] 40 mg PO BEDTIME 07/08/14 Levothyroxine [Synthroid*] 50 mcg PO [id number] 11/08/16 Metformin ER [Glucophage ER*] 500 mg PO BID 11/08/16 Metoprolol Tartrate 50 mg PO [id number] 11/08/16 Omeprazole 40 mg PO DAILY 11/08/16 Ascorbic Acid [Vitamin C] 500 mg PO DAILY 01/17/18 Cholecalciferol (Vitamin D3) [Vitamin D 1000 Iu Tab] 1,000 unit PO DAILY 01/17/18 Ferrous Sulfate [Iron] 325 mg PO DAILY 01/17/18 Flecainide [Tambocor] 50 mg PO BID 01/17/18 Rivaroxaban [Xarelto] 15 mg PO DAILY 01/17/18 - Past Medical/Surgical History Diabetic: No -: hyperlipidemia -: hypothyroidism -: HTN -: Atrial fibrillation on anticoagulation -: Pacemaker -: Diabetes mellitus type 2 -: GERD -: skin cancer -: ovarian cancer -: CKD 3 -: pacemaker -: hysterectomy -: breast implants -: tumor removed from R leg "fatty tumor" -: appy Psychosocial/ Personal History: Lives alone at home - Family History Mother Notes: unsure on mother's medical history Sister Medical History: Lung disease, Cancer Notes: FAther and 2 sister from emphysema, sister had cancer patient does not know which type Father Medical History: Lung disease - Social History Smoking Status: Former smoker Alcohol use: No CD- Drugs: No Caffeine use: Yes Place of Residence: Home Review of Systems 10-point ROS is otherwise unremarkable Physical Examination Temp Pulse Resp BP Pulse Ox 98.7 F 109 H 20 128/61 90 L 05/12/21 10:23 05/12/21 10:23 05/12/21 10:23 05/12/21 10:23 05/12/21 10:23 General: In no apparent distress, Oriented x3, Cooperative HEENT: Atraumatic Neck: Supple Respiratory: Clear to auscultation bilaterally Cardiovascular: No edema, Regular rate/rhythm Gastrointestinal: Soft and benign, Non-distended Musculoskeletal: No clubbing, No contractures Integumentary: No rashes, No cyanosis Neurological: Normal speech Laboratory Data (last 24 hrs) 05/12/21 06:02: Sodium 139, Potassium 4.0, BUN 17, Creatinine 0.95, Glucose 123 H, Total Bilirubin 0.3, AST 14 L, ALT 15, Alkaline Phosphatase 57 05/12/21 06:02: WBC 12.80 H, Hgb 11.7 L, Hct 35.9 L, Plt Count 326 Imagings Data: EXAM DESCRIPTION: CT - Abdomen Pelvis Wo Contrast - 05/11/2021 6:31 am CLINICAL HISTORY: 86 years, Female, Abd pain;Hematuria COMPARISON: None TECHNIQUE: Multiple transaxial tomograms of the abdomen and pelvis were performed from the lung bases to the symphysis pubis 5 m slice thickness at 5 mm interval reconstruction, without administration of IV and oral contrast. Multiplanar reformats in the sagittal and coronal plane were generated and reviewed. This exam was performed according to our departmental dose-optimization protocol, which includes automated exposure control, adjustment of the mA and/or kV according to patient size and/or use of iterative reconstruction technique. FINDINGS: The lack of IV and oral contrast limits evaluation of solid organs, subtle lesions cannot be excluded. The lung bases demonstrate to be clear. The heart demonstrate coronary artery calcifications. There is a dual-lead pacemaker in place. Breast implants with the minimal rim wall calcification. Grossly the unopacified liver, gallbladder, pancreas, spleen and adrenal glands demonstrate to be within normal limits, no significant focal lesions were identified. The the right kidney demonstrate to be unremarkable. There is no evidence for nephrolithiasis and/or hydronephrosis. The left kidney demonstrate prominence of the left renal pelvis/calyceal system with no discernible calculi, findings could correspond to recent passage of a calculus and/or partial left UPJ narrowing. There is minimal perinephric haziness within the left kidney perhaps suggesting fluid. Grossly the unopacified stomach, small bowel and large bowel demonstrate to be within normal limits. There is no evidence for bowel dilatation/or free air. The urinary bladder was partially distended with no gross abnormalities. The uterus is absent. There are no adnexal masses The aorta demonstrate atherosclerotic disease extending into the aortic bifurcation. There is no retroperitoneal lymphadenopathy. There is no evidence for ascites. The bone windows demonstrate diffuse bony osteopenia. Degenerative disc disease throughout the lumbar spine. IMPRESSION: Prominence of the left renal pelvis/calyceal system with no discernible calculi, findings could correspond to recent passage of a calculus and/or partial left UPJ narrowing. There is minimal perinephric haziness within the left kidney perhaps suggesting fluid. Atherosclerotic disease of the aorta. Status post hysterectomy. Conclusions/Impression: ARELI likely due to hypovolemia CKD III with proteinuria -No NSAIDs -IVF bolus as needed Hypocalcemia -Continue Vitamin D3 HTN with CKD -Continue Metoprolol DM II with CKD -RISS Moderate Malnutrition -Encourage nutrition Anemia in chronic illness -Monitor H&H Atherosclerosis of the aorta -Continue Lipitor Acute Cystitis -Continue Cefepime Thank you kindly for the consultation Case reviewed with Dr. Freed
[2021-05-12] MEDS: RIVAROXABAN 15 MG TABLET PO SCH (17:04)
[2021-05-12] MEDS: ATORVASTATIN 10 MG TAB PO SCH (21:12)
[2021-05-12] MEDS: CEFEPIME 1 GM/100 ML BAG IV SCH (21:12)
[2021-05-12] MEDS: ALPRAZOLAM 0.25 MG TABLET PO PRN (21:21)
[2021-05-13] MEDS: METOPROLOL TAR 50 MG TAB PO SCH (04:53)
[2021-05-13] MEDS: LEVOTHYROXINE SOD 0.05 MG TABLET PO SCH (04:54)
[2021-05-13] MEDS: ALPRAZOLAM 0.25 MG TABLET PO PRN (05:22)
--- NOTE | 2021-05-13 06:09 | P.PN ---
Subjective Date of Service: 05/13/21 Primary Care Provider: Dr. Castellanos Chief Complaint: Dysuria Subjective: Improving Physical Examination - Vital Signs Temperature: 96.9 F Blood Pressure: 115/62 Pulse: 135 Respirations: 20 Pulse Ox (%): 96 - Studies Laboratory Data (last 24 hrs) 05/12/21 06:02: Sodium 139, Potassium 4.0, BUN 17, Creatinine 0.95, Glucose 123 H, Total Bilirubin 0.3, AST 14 L, ALT 15, Alkaline Phosphatase 57 05/12/21 06:02: WBC 12.80 H, Hgb 11.7 L, Hct 35.9 L, Plt Count 326 Assessment & Plan Discharge Plan: Home (Home health and physical therapy) Plan to discharge in: 24 Hours Physician Review Additional Text: COVID: negative CT scan: COMPARISON: None TECHNIQUE: Multiple transaxial tomograms of the abdomen and pelvis were performed from the lung bases to the symphysis pubis 5 m slice thickness at 5 mm interval reconstruction, without administration of IV and oral contrast. Multiplanar reformats in the sagittal and coronal plane were generated and reviewed. This exam was performed according to our departmental dose-optimization protocol, which includes automated exposure control, adjustment of the mA and/or kV according to patient size and/or use of iterative reconstruction technique. FINDINGS: The lack of IV and oral contrast limits evaluation of solid organs, subtle lesions cannot be excluded. The lung bases demonstrate to be clear. The heart demonstrate coronary artery calcifications. There is a dual-lead pacemaker in place. Breast implants with the minimal rim wall calcification. Grossly the unopacified liver, gallbladder, pancreas, spleen and adrenal glands demonstrate to be within normal limits, no significant focal lesions were iden tified. The the right kidney demonstrate to be unremarkable. There is no evidence for nephrolithiasis and/or hydronephrosis. The left kidney demonstrate prominence of the left renal pelvis/calyceal system with no discernible calculi, findings could correspond to recent passage of a calculus and/or partial left UPJ narrowing. There is minimal perinephric haziness within the left kidney perhaps suggesting fluid. Grossly the unopacified stomach, small bowel and large bowel demonstrate to be within normal limits. There is no evidence for bowel dilatation/or free air. The urinary bladder was partially distended with no gross abnormalities. The uterus is absent. There are no adnexal masses The aorta demonstrate atherosclerotic disease extending into the aortic bifurcation. There is no retroperitoneal lymphadenopathy. There is no evidence for ascites. The bone windows demonstrate diffuse bony osteopenia. Degenerative disc disease throughout the lumbar spine. IMPRESSION: Prominence of the left renal pelvis/calyceal system with no discernible calculi, findings could correspond to recent passage of a calculus and/or partial left UPJ narrowing. There is minimal perinephric haziness within the left kidney perhaps suggesting fluid. Atherosclerotic disease of the aorta. Status post hysterectomy. CXR: COMPARISON: CHEST SINGLE VIEW dated 11/21/2014; CHEST SINGLE VIEW dated 11/20/2014; CHEST SINGLE VIEW dated 07/21/2014; CHEST SINGLE VIEW dated 07/20/2014; Abdomen Pelvis Wo Contrast dated 05/10/2021 FINDINGS: Lines: Left subclavian approach pacemaker. Lungs: Diffuse prominence of the pulmonary interstitium Pleural: Probable left pleural effusion. Blunting of the right costophrenic angle noted as well. Cardiac: Cardiomegaly. Bones: No acute fractures. IMPRESSION: Pulmonary edema present. Small left pleural effusion suspected. Difficult to exclude a tiny right effusion. ECHO 2014: EF 78% Physical Exam: General: Alert, In no apparent distress, Oriented x3 HEENT: Neck supple Respiratory: Slightly decreased bilateral. Currently on 1 to 2 L per nasal cannula. Cardiovascular: Atrial fibrillation rate around 100 Gastrointestinal: Normal bowel sounds, No tenderness Musculoskeletal: No tenderness Integumentary: No rashes Neurological: Normal speech, Normal strength at 5/5 x4 extr, Normal tone, Normal affect Lymphatics: No axilla or inguinal lymphadenopathy Impression: UTI, with possible early pyelonephritis and passage of renal stone, urine culture positive for E. coli and Enterococcus Atrial fibrillation on chronic anticoagulation therapy with pacemaker Acute on chronic diastolic CHF Diabetes type 2 with hyperglycemia Acute on CKD 3 Hypertension Hyperlipidemia Hypothyroidism GERD Anxiety Plan: UTI, with possible early pyelonephritis and passage of renal stone, urine culture positive for E. coli and Enterococcus: Will discontinue IV antibiotic therapy. Spoke with pharmacy on medications concerning her E. coli and Enterococcus. Will start cefdinir 300 mg 1 pill twice daily for 7 days to cover E. coli and Augmentin 500 mg 1 pill twice daily for 10 days to cover Enterococcus. UTI prevention provided. Physical therapy to ambulate patient. Atrial fibrillation on chronic anticoagulation therapy with pacemaker: Continue flecainide 50 twice daily and metoprolol 50 daily. Patient also on Xarelto 15 mg daily. Acute on chronic diastolic CHF: X-ray shows some pulmonary edema. Will give IV Lasix 20 mg now. Discontinue IV fluids. Will monitor closely. Wean off oxygen to maintain sats above 93%. Recheck chest x-ray tomorrow. Diabetes type 2 with hyperglycemia: Continue sliding scale Acute on CKD 3: Discontinue IV fluids. Lasix to be given. Hypertension: Continue metoprolol 50 mg daily Hyperlipidemia: Continue Lopid 600 mg 1 pill twice daily Hypothyroidism: Continue levothyroxine 50 mcg daily GERD: Continue with Prilosec daily Anxiety: Continue Xanax as needed DVT PPX: Continue Xarelto Code status: DNR Discharge Plan: Spoke with son and patient at length. Anticipate possible discharge tomorrow with home health and physical therapy to be arranged. Time Spent Managing Pts Care (In Minutes): 55
[2021-05-13 07:02] LABS: Absolute Lymphocytes (CBC) 0.8 K/uL (0.7-4.9); Basophils % 0.5 % (0-1.3); Hematocrit 34.8 % (36.0-45.0); Lymphocytes % 7.1 % (15.3-44.8); RBC Red Blood Cell Count 4.06 M/uL (3.86-4.86)
[2021-05-13 07:20] LABS: Albumin 2.1 g/dL (3.4-5.0); Bilirubin Total 0.3 mg/dL (0.2-1.0); Potassium 4.2 mmol/L (3.5-5.1); Protein, Total 6.1 g/dL (6.4-8.2)
[2021-05-13] MEDS: INSULIN -REGULAR HUMAN 50 UNIT/0.5 ML ML SQ SCH ×4 (07:30→20:02)
[2021-05-13] MEDS: FLECAINIDE 100 MG TAB PO SCH ×2 (09:36→20:00)
[2021-05-13] MEDS: ASCORBIC ACID 500 MG TABLET PO SCH (09:36)
[2021-05-13] MEDS: FAMOTIDINE 20 MG TAB PO SCH (09:36)
[2021-05-13] MEDS: gemfibroziL 600 MG TAB PO SCH ×2 (09:37→20:00)
[2021-05-13] MEDS: PANTOPRAZOLE 40MG TABLET PO SCH (09:37)
[2021-05-13] MEDS: VITAMIN D 1000 UNIT TAB PO SCH (09:37)
--- NOTE | 2021-05-13 12:04 | RAD REPORT ---
EXAM DESCRIPTION: RAD - Chest Single View - 05/13/2021 11:53 am CLINICAL HISTORY: evaluate for CHF COMPARISON: CHEST SINGLE VIEW dated 11/21/2014; CHEST SINGLE VIEW dated 11/20/2014; CHEST SINGLE VIEW dated 07/21/2014; CHEST SINGLE VIEW dated 07/20/2014; Abdomen Pelvis Wo Contrast dated 05/10/2021 FINDINGS: Lines: Left subclavian approach pacemaker. Lungs: Diffuse prominence of the pulmonary interstitium Pleural: Probable left pleural effusion. Blunting of the right costophrenic angle noted as well. Cardiac: Cardiomegaly. Bones: No acute fractures. Other: IMPRESSION: Pulmonary edema present. Small left pleural effusion suspected. Difficult to exclude a t iny right effusion.
[2021-05-13] MEDS ORDERED: FUROSEMIDE 20 MG/ 2ML VIAL IV ONE (14:12)
[2021-05-13] MEDS: RIVAROXABAN 15 MG TABLET PO SCH (17:32)
[2021-05-13] MEDS: AMOX/K CLAV 500 MG TAB PO SCH (19:59)
[2021-05-13] MEDS: CEFDINIR 300 MG CAP PO SCH (20:00)
[2021-05-13] MEDS: ATORVASTATIN 10 MG TAB PO SCH (20:01)
--- NOTE | 2021-05-13 21:59 | P.PN ---
Date of Service: 05/13/21 Vital Signs Temp Pulse Resp BP Pulse Ox 98.4 F 65 16 132/55 L 92 05/13/21 20:00 05/13/21 20:00 05/13/21 20:00 05/13/21 20:00 05/13/21 20:00 Medications Acetaminophen (Acetaminophen 500 Mg Tab) 500 mg PO Q4HP PRN PRN Reason: TEMP > 100' F Last Admin: 05/12/21 08:23 Dose: 500 mg Documented by: Alprazolam (Alprazolam 0.25 Mg Tablet) 0.25 mg PO TID PRN PRN Reason: ANXIETY Last Admin: 05/13/21 05:22 Dose: 0.25 mg Documented by: Amoxicillin/Clavulanate Potassium (Amox/K Clav 500 Mg Tab) 500 mg PO BID [facility]; Protocol Stop: 05/23/21 09:01 Last Admin: 05/13/21 19:59 Dose: 500 mg Documented by: Ascorbic Acid (Ascorbic Acid 500 Mg Tablet) 500 mg PO DAILY [facility] Last Admin: 05/13/21 09:36 Dose: 500 mg Documented by: Atorvastatin Calcium (Atorvastatin 10 Mg Tab) 10 mg PO BEDTIME [facility] Last Admin: 05/13/21 20:01 Dose: 10 mg Documented by: Cefdinir (Cefdinir 300 Mg Cap) 300 mg PO BID [facility]; Protocol Stop: 05/20/21 09:01 Last Admin: 05/13/21 20:00 Dose: 300 mg Documented by: Cholecalciferol (Vitamin D 1000 Unit Tab) 1,000 unit PO DAILY [facility] Last Admin: 05/13/21 09:37 Dose: 1,000 unit Documented by: Famotidine (Famotidine 20 Mg Tab) 20 mg PO DAILY [facility]; Protocol Last Admin: 05/13/21 09:36 Dose: 20 mg Documented by: Flecainide Acetate (Flecainide 100 Mg Tab) 50 mg PO BID [facility] Last Admin: 05/13/21 20:00 Dose: 50 mg Documented by: Gemfibrozil (Gemfibrozil 600 Mg Tab) 600 mg PO BID [facility] Last Admin: 05/13/21 20:00 Dose: 600 mg Documented by: Sodium Chloride (Sodium Chloride) 250 mls @ 999 mls/hr IV Q15M PRN PRN Reason: HYPOTENSION Insulin Human Regular (Insulin -Regular Human 50 Unit/0.5 Ml Ml) 0 unit SQ [facility]; Protocol Last Admin: 05/13/21 20:02 Dose: Not Given Documented by: Levothyroxine Sodium (Levothyroxine Sod 0.05 Mg Tablet) 0.05 mg PO [id number] [facility] Last Admin: 05/13/21 04:54 Dose: 0.05 mg Documented by: Metoprolol Tartrate (Metoprolol Tar 50 Mg Tab) 50 mg PO [id number] [facility] Last Admin: 05/13/21 04:53 Dose: 50 mg Documented by: Ondansetron HCl (Ondansetron 4 Mg/2 Ml Vial) 4 mg IV Q6HP PRN PRN Reason: NAUSEA / VOMITING Pantoprazole Sodium (Pantoprazole 40mg Tablet) 40 mg PO DAILY [facility] Last Admin: 05/13/21 09:37 Dose: 40 mg Documented by: Rivaroxaban (Rivaroxaban 15 Mg Tablet) 15 mg PO DAILY AT SUPPER [facility] Last Admin: 05/13/21 17:32 Dose: 15 mg Documented by: Sodium Chloride (Flush Normal Saline 10 Ml) 10 ml IV BID [facility] Last Admin: 05/13/21 20:02 Dose: 10 ml Documented by: Microbiology Results 05/10/21 20:00 Clean Catch Urine Portal Count - Final >100,000 CFU/ML. 05/10/21 20:00 Clean Catch Urine - Final Escherichia Coli Enterococcus Faecalis Assessment/ Plan: Nephrology Progress Note Feeling better No chest pain or dyspnea No acute events overnight Vitals, medications blood work and imaging reviewed in the chart General: In no apparent distress, Oriented x3, Cooperative HEENT: Atraumatic Neck: Supple Respiratory: Clear to auscultation bilaterally Cardiovascular: No edema, Regular rate/rhythm Gastrointestinal: Soft and benign, Non-distended Musculoskeletal: No clubbing, No contractures Integumentary: No rashes, No cyanosis Neurological: Normal speech Laboratory Data (last 24 hrs) 05/12/21 06:02: Sodium 139, Potassium 4.0, BUN 17, Creatinine 0.95, Glucose 123 H, Total Bilirubin 0.3, AST 14 L, ALT 15, Alkaline Phosphatase 57 05/12/21 06:02: WBC 12.80 H, Hgb 11.7 L, Hct 35.9 L, Plt Count 326 Imagings Data: EXAM DESCRIPTION: CT - Abdomen Pelvis Wo Contrast - 05/11/2021 6:31 am CLINICAL HISTORY: 86 years, Female, Abd pain;Hematuria COMPARISON: None TECHNIQUE: Multiple transaxial tomograms of the abdomen and pelvis were performed from the lung bases to the symphysis pubis 5 m slice thickness at 5 mm interval reconstruction, without administration of IV and oral contrast. Multiplanar reformats in the sagittal and coronal plane were generated and reviewed. This exam was performed according to our departmental dose-optimization protocol, which includes automated exposure control, adjustment of the mA and/or kV according to patient size and/or use of iterative reconstruction technique. FINDINGS: The lack of IV and oral contrast limits evaluation of solid organs, subtle lesions cannot be excluded. The lung bases demonstrate to be clear. The heart demonstrate coronary artery calcifications. There is a dual-lead pacemaker in place. Breast implants with the minimal rim wall calcification. Grossly the unopacified liver, gallbladder, pancreas, spleen and adrenal glands demonstrate to be within normal limits, no significant focal lesions were identified. The the right kidney demonstrate to be unremarkable. There is no evidence for nephrolithiasis and/or hydronephrosis. The left kidney demonstrate prominence of the left renal pelvis/calyceal system with no discernible calculi, findings could correspond to recent passage of a calculus and/or partial left UPJ narrowing. There is minimal perinephric haziness within the left kidney perhaps suggesting fluid. Grossly the unopacified stomach, small bowel and large bowel demonstrate to be within normal limits. There is no evidence for bowel dilatation/or free air. The urinary bladder was partially distended with no gross abnormalities. The uterus is absent. There are no adnexal masses The aorta demonstrate atherosclerotic disease extending into the aortic bifurcation. There is no retroperitoneal lymphadenopathy. There is no evidence for ascites. The bone windows demonstrate diffuse bony osteopenia. Degenerative disc disease throughout the lumbar spine. IMPRESSION: Prominence of the left renal pelvis/calyceal system with no discernible calculi, findings could correspond to recent passage of a calculus and/or partial left UPJ narrowing. There is minimal perinephric haziness within the left kidney perhaps suggesting fluid. Atherosclerotic disease of the aorta. Status post hysterectomy. Conclusions/Impression: ARELI likely due to hypovolemia CKD III with proteinuria -No NSAIDs -IVF bolus as needed Hypocalcemia -Continue Vitamin D3 HTN with CKD -Continue Metoprolol DM II with CKD -RISS Moderate Malnutrition -Encourage nutrition Anemia in chronic illness -Monitor H&H Atherosclerosis of the aorta -Continue Lipitor Acute Cystitis -Agree with abx changes
[2021-05-14] MEDS: LEVOTHYROXINE SOD 0.05 MG TABLET PO SCH (05:40)
[2021-05-14] MEDS: METOPROLOL TAR 50 MG TAB PO SCH (05:40)
--- NOTE | 2021-05-14 06:06 | P.PN ---
Subjective Date of Service: 05/14/21 Primary Care Provider: Dr. Castellanos Chief Complaint: Dysuria Subjective: Improving (Stable. Currently on 2 L per nasal cannula.) Physical Examination - Vital Signs Temperature: 98.4 F Blood Pressure: 135/60 Pulse: 62 Respirations: 17 Pulse Ox (%): 96 - Studies Microbiology Data (last 24 hrs): 05/10/21 20:00 Clean Catch Urine [place] Count - Final >100,000 CFU/ML. 05/10/21 20:00 Clean Catch Urine - Final Escherichia Coli Enterococcus Faecalis Assessment & Plan Discharge Plan: Home Plan to discharge in: 24 Hours Physician Review Additional Text: COVID: negative CT scan: COMPARISON: None TECHNIQUE: Multiple transaxial tomograms of the abdomen and pelvis were performed from the lung bases to the symphysis pubis 5 m slice thickness at 5 mm interval reconstruction, without administration of IV and oral contrast. Multiplanar reformats in the sagittal and coronal plane were generated and reviewed. This exam was performed according to our departmental dose-optimization prot ocol, which includes automated exposure control, adjustment of the mA and/or kV according to patient size and/or use of iterative reconstruction technique. FINDINGS: The lack of IV and oral contrast limits evaluation of solid organs, subtle lesions cannot be excluded. The lung bases demonstrate to be clear. The heart demonstrate coronary artery calcifications. There is a dual-lead pacemaker in place. Breast implants with the minimal rim wall calcification. Grossly the unopacified liver, gallbladder, pancreas, spleen and adrenal glands demonstrate to be within normal limits, no significant focal lesions were identified. The the right kidney demonstrate to be unremarkable. There is no evidence for nephrolithiasis and/or hydronephrosis. The left kidney demonstrate prominence of the left renal pelvis/calyceal system with no discernible calculi, findings could correspond to recent passage of a calculus and/or partial left UPJ narrowing. There is minimal perinephric haziness within the left kidney perhaps suggesting fluid. Grossly the unopacified stomach, small bowel and large bowel demonstrate to be within normal limits. There is no evidence for bowel dilatation/or free air. The urinary bladder was partially distended with no gross abnormalities. The uterus is absent. There are no adnexal masses The aorta demonstrate atherosclerotic disease extending into the aortic bifurcation. There is no retroperitoneal lymphadenopathy. There is no evidence for ascites. The bone windows demonstrate diffuse bony osteopenia. Degenerative disc disease throughout the lumbar spine. IMPRESSION: Prominence of the left renal pelvis/calyceal system with no discernible calculi, findings could correspond to recent passage of a calculus and/or partial left UPJ narrowing. There is minimal perinephric haziness within the left kidney perhaps suggesting fluid. Atherosclerotic disease of the aorta. Status post hysterectomy. CXR: COMPARISON: CHEST SINGLE VIEW dated 11/21/2014; CHEST SINGLE VIEW dated 11/20/2014; CHEST SINGLE VIEW dated 07/21/2014; CHEST SINGLE VIEW dated 07/20/2014; Abdomen Pelvis Wo Contrast dated 05/10/2021 FINDINGS: Lines: Left subclavian approach pacemaker. Lungs: Diffuse prominence of the pulmonary interstitium Pleural: Probable left pleural effusion. Blunting of the right costophrenic angle noted as well. Cardiac: Cardiomegaly. Bones: No acute fractures. IMPRESSION: Pulmonary edema present. Small left pleural effusion suspected. Difficult to exclude a tiny right effusion. Follow up CXR 05/14/2021: COMPARISON: Chest Single View dated 05/13/2021; CHEST SINGLE VIEW dated 11/21/2014; CHEST SINGLE VIEW dated 11/20/2014; CHEST SINGLE VIEW dated 07/21/2014 FINDINGS: Lines: Pacemaker. Lungs: Diffuse prominence of the pulmonary interstitium with slight improvement. Pleural: Left pleural effusion. Cardiac: Cardiomegaly. Bones: No acute fractures. IMPRESSION: Pulmonary edema which is slightly improved compared with 05/13/2021 ECHO 2014: EF 78% Physical Exam: General: Alert, In no apparent distress, Oriented x3 HEENT: Neck supple Respiratory: Slightly decreased bilateral. Currently on 1 to 2 L per nasal cannula. Cardiovascular: Atrial fibrillation rate around 100 Gastrointestinal: Normal bowel sounds, No tenderness Musculoskeletal: No tenderness Integumentary: No rashes Neurological: Normal speech, Normal strength at 5/5 x4 extr, Normal tone, Normal affect Lymphatics: No axilla or inguinal lymphadenopathy Impression: UTI, with possible early pyelonephritis and passage of renal stone, urine culture positive for E. coli and Enterococcus Atrial fibrillation on chronic anticoagulation therapy with pacemaker Acute on chronic diastolic CHF Diabetes type 2 with hyperglycemia Acute on CKD 3 Hypertension Hyperlipidemia Hypothyroidism GERD Anxiety Plan: UTI, with possible early pyelonephritis and passage of renal stone, urine culture positive for E. coli and Enterococcus: Patient doing well at this time. Spoke with pharmacy concerning plan of care. Patient will continue with cefdinir 300 mg 1 pill twice daily for 6 days to cover E. coli and Augmentin 500 mg 1 pill twice daily for 9 days to cover Enterococcus. UTI prevention provided. Physical therapy to ambulate patient. We will give Lasix again this morning. Reassess later this afternoon. If stable will try to wean off oxygen and discharge home later today. Atrial fibrillation on chronic anticoagulation therapy with pacemaker: Continue flecainide 50 twice daily and metoprolol 50 daily. Patient also on Xarelto 15 mg daily. Acute on chronic diastolic CHF: X-ray shows improvement. Will give another Lasix 20 mg IV this morning. We will try to wean off oxygen. Continue 1500 cc/day fluid restriction. We will continue with Lasix 20 mg daily at discharge. Anticipate possible discharge later today. Patient may require home oxygen at discharge. Diabetes type 2 with hyperglycemia: Continue sliding scale Acute on CKD 3: Continue as above Hypertension: Continue metoprolol 50 mg daily Hyperlipidemia: Continue Lopid 600 mg 1 pill twice daily Hypothyroidism: Continue levothyroxine 50 mcg daily GERD: Continue with Prilosec daily Anxiety: Continue Xanax as needed DVT PPX: Continue Xarelto Code status: DNR Discharge Plan: Spoke with son and patient at length. Anticipate possible discharge tomorrow with home health and physical therapy to be arranged. Time Spent Managing Pts Care (In Minutes): 55
--- NOTE | 2021-05-14 07:15 | RAD REPORT ---
EXAM DESCRIPTION: RAD - Chest Single View - 05/14/2021 5:52 am CLINICAL HISTORY: Follow-up CHF COMPARISON: Chest Single View dated 05/13/2021; CHEST SINGLE VIEW dated 11/21/2014; CHEST SINGLE VIEW dated 11/20/2014; CHEST SINGLE VIEW dated 07/21/2014 FINDINGS: Lines: Pacemaker. Lungs: Diffuse prominence of the pulmonary interstitium with slight improvement. Pleural: Left pleural effusion. Cardiac: Cardiomegaly. Bones: No acute fractures. Other: IMPRESSION: Pulmonary edema which is slightly improved compared with 05/13/2021.
[2021-05-14] MEDS: INSULIN -REGULAR HUMAN 50 UNIT/0.5 ML ML SQ SCH ×2 (07:30→11:30)
[2021-05-14] MEDS ORDERED: FUROSEMIDE 20 MG/ 2ML VIAL IV ONE (09:28)
[2021-05-14] MEDS: FAMOTIDINE 20 MG TAB PO SCH (10:54)
[2021-05-14] MEDS: VITAMIN D 1000 UNIT TAB PO SCH (10:54)
[2021-05-14] MEDS: ASCORBIC ACID 500 MG TABLET PO SCH (10:54)
[2021-05-14] MEDS: PANTOPRAZOLE 40MG TABLET PO SCH (10:54)
[2021-05-14] MEDS: FLECAINIDE 100 MG TAB PO SCH (10:54)
[2021-05-14] MEDS: gemfibroziL 600 MG TAB PO SCH (10:55)
[2021-05-14] MEDS: AMOX/K CLAV 500 MG TAB PO SCH (10:55)
[2021-05-14] MEDS: CEFDINIR 300 MG CAP PO SCH (10:55)
[2021-05-14 14:03] VITALS: O2SAT 93
--- NOTE | 2021-05-14 14:59 | P.DS ---
Admission Date: 05/12/21 Discharge Date: 05/14/21 Primary Care Provider: Dr. Castellanos Disposition: ROUTINE DISCHARGE Discharge Condition: GOOD Reason for Admission: Dysuria Consultations: Nephrology-Dr. Santiago Procedures: COVID: negative CT scan: COMPARISON: None TECHNIQUE: Multiple transaxial tomograms of the abdomen and pelvis were performed from the lung bases to the symphysis pubis 5 m slice thickness at 5 mm interval reconstruction, without administration of IV and oral contrast. Multiplanar reformats in the sagittal and coronal plane were generated and reviewed. This exam was performed according to our departmental dose-optimization protocol, which includes automated exposure control, adjustment of the mA and/or kV according to patient size and/or use of iterative reconstruction technique. FINDINGS: The lack of IV and oral contrast limits evaluation of solid organs, subtle lesions cannot be excluded. The lung bases demonstrate to be clear. The heart demonstrate coronary artery calcifications. There is a dual-lead pacemaker in place. Breast implants with the minimal rim wall calcification. Grossly the unopacified liver, gallbladder, pancreas, spleen and adrenal glands demonstrate to be within normal limits, no significant focal lesions were identified. The the right kidney demonstrate to be unremarkable. There is no evidence for nephrolithiasis and/or hydronephrosis. The left kidney demonstrate prominence of the left renal pelvis/calyceal system with no discernible calculi, findings could correspond to recent passage of a calculus and/or partial left UPJ narrowing. There is minimal perinephric haziness within the left kidney perhaps suggesting fluid. Grossly the unopacified stomach, small bowel and large bowel demonstrate to be within normal limits. There is no evidence for bowel dilatation/or free air. The urinary bladder was partially distended with no gross abnormalities. The uterus is absent. There are no adnexal masses The aorta demonstrate atherosclerotic disease extending into the aortic bifurcation. There is no retroperitoneal lymphadenopathy. There is no evidence for ascites. The bone windows demonstrate diffuse bony osteopenia. Degenerative disc disease throughout the lumbar spine. IMPRESSION: Prominence of the left renal pelvis/calyceal system with no di scernible calculi, findings could correspond to recent passage of a calculus and/or partial left UPJ narrowing. There is minimal perinephric haziness within the left kidney perhaps suggesting fluid. Atherosclerotic disease of the aorta. Status post hysterectomy. CXR: COMPARISON: CHEST SINGLE VIEW dated 11/21/2014; CHEST SINGLE VIEW dated 11/20/2014; CHEST SINGLE VIEW dated 07/21/2014; CHEST SINGLE VIEW dated 07/20/2014; Abdomen Pelvis Wo Contrast dated 05/10/2021 FINDINGS: Lines: Left subclavian approach pacemaker. Lungs: Diffuse prominence of the pulmonary interstitium Pleural: Probable left pleural effusion. Blunting of the right costophrenic angle noted as well. Cardiac: Cardiomegaly. Bones: No acute fractures. IMPRESSION: Pulmonary edema present. Small left pleural effusion suspected. Difficult to exclude a tiny right effusion. Follow up CXR 05/14/2021: COMPARISON: Chest Single View dated 05/13/2021; CHEST SINGLE VIEW dated 11/21/2014; CHEST SINGLE VIEW dated 11/20/2014; CHEST SINGLE VIEW dated 07/21/2014 FINDINGS: Lines: Pacemaker. Lungs: Diffuse prominence of the pulmonary interstitium with slight improvement. Pleural: Left pleural effusion. Cardiac: Cardiomegaly. Bones: No acute fractures. IMPRESSION: Pulmonary edema which is slightly improved compared with 05/13/2021 ECHO 2014: EF 78% Medical Problem List: UTI, with possible early pyelonephritis and passage of renal stone, urine culture positive for E. coli and Enterococcus Atrial fibrillation on chronic anticoagulation therapy with pacemaker Acute on chronic diastolic CHF Diabetes type 2 with hyperglycemia Acute on CKD 3 Hypertension Hyperlipidemia Hypothyroidism GERD Anxiety Brief History of Present Illness: 86-year-old female with history of atrial fibrillation on chronic anticoagulation therapy, hypertension, hyperlipidemia, hypothyroidism, diabetes mellitus type 2 presents emergency department for dysuria. Patient reports urinary symptoms over the course of the last 2 weeks, does have previous UTIs. Patient was evaluated emergency room and labs are significant for white blood cell count 14.8 with left shift GFR 41 glucose 152 urinalysis with 20-50 bacteria nitrite +,3+ leukoesterase CT abdomen pelvis without contrast demonstrated prominence of the left renal pelvis/calyceal system with no discernible calculi, findings could correspond to recent passage of a calculus and/or partial left UPJ narrowing, minimal perinephric haziness within the left kidney perhaps suggesting fluid, possible pyelonephritis. Patient was admitted for further evaluation and treatment. Hospital Course: Patient presented with UTI. CT showed the possibility of passage of recent stone and early pyelonephritis. Patient was admitted for treatment. Patient responded well to antibiotic therapy. Urine culture was positive for E. coli and Enterococcus. After discussion with pharmacy plan of care addressed in detail concerning antibiotic therapy. At discharge the patient will continue with cefdinir 300 mg 1 pill twice daily for 6 days to cover E. coli and Augmentin 500 mg twice daily for 9 days to cover Enterococcus. UTI prevention provided. At discharge recommend to follow-up with PCP within 1 week. Recommend to recheck urine culture within 1 week to monitor resolution. Patient with history of atrial fibrillation on chronic anticoagulation therapy with pacemaker. Overall stable. At discharge she will continue with flecainide 50 mg 1 pill twice daily, metoprolol 50 mg daily, and Xarelto 15 mg daily. Patient with acute on chronic diastolic CHF. During the course of her stay patient received IV fluids. Patient was slightly overloaded with fluids. This was discontinued. Patient required Lasix IV for 2 days. Her condition improved. Patient was able to get off oxygen. Patient ambulating well without oxygen at discharge. Patient reports that she does take diuretic therapy twice a week. Patient will continue with her current diuretic therapy twice a week. Recommend to continue 1500 cc/day fluid restriction and low-salt diet. If her weight increases, edema to the lower extremity worsens or she has some increasing shortness of breath patient may require adjustment in her diuretic therapy. This can be done with the help of her PCP or nephrology. Patient with diabetes mellitus type 2. At discharge she will continue with her current medication Metformin 500 mg 1 pill twice daily. Recommend to maintain blood sugar less than 140 fasting and less than 200 after meals. Further adjustment can be done by her PCP. Recommend to recheck hemoglobin A1c every 3 months to monitor her progress. This could be done with the help of her PCP. Patient with hyperlipidemia. At discharge patient will continue with Lopid 600 mg 1 pill twice daily and pravastatin 40 mg daily. Patient with hypothyroidism. At discharge we will continue with levothyroxine 50 mcg daily. Patient with GERD. At discharge patient will continue with Prilosec 40 mg daily daily. Patient may also continue with her current medications of iron supplementation, vitamin C and vitamin D daily. Vital Signs/Physical Exam: Temp Pulse Resp BP Pulse Ox 97.0 F 64 20 132/56 L 95 05/14/21 12:00 05/14/21 12:00 05/14/21 12:00 05/14/21 12:00 05/14/21 12:00 General: Alert, In no apparent distress, Oriented x3, Cooperative HEENT: Atraumatic Neck: Supple Respiratory: Clear to auscultation bilaterally, Normal air movement Cardiovascular: Normal pulses, Regular rate/rhythm Gastrointestinal: Normal bowel sounds, No tenderness, No masses, No rebound, No guarding Musculoskeletal: No erythema, No tenderness, No warmth Integumentary: No tenderness/swelling, No erythema, No warmth, No cyanosis Neurological: Normal speech, Normal strength at 5/5 x4 extr, Normal tone, Normal affect Laboratory Data at Discharge: WBC 11.70 K/uL (4.3-10.9) H 05/13/21 06:51 Hgb 11.4 g/dL (12.0-15.0) L 05/13/21 06:51 Hct 34.8 % (36.0-45.0) L 05/13/21 06:51 Plt Count 309 K/uL (152-406) 05/13/21 06:51 Sodium 139 mmol/L (136-145) 05/13/21 06:51 Potassium 4.2 mmol/L (3.5-5.1) 05/13/21 06:51 BUN 18 mg/dL (7-18) 05/13/21 06:51 Creatinine 0.82 mg/dL (0.55-1.3) 05/13/21 06:51 Glucose 129 mg/dL (74-106) H 05/13/21 06:51 Magnesium 2.0 mg/dL (1.8-2.4) 05/13/21 06:51 Total Bilirubin 0.3 mg/dL (0.2-1.0) 05/13/21 06:51 AST 14 U/L (15-37) L 05/13/21 06:51 ALT 16 U/L (12-78) 05/13/21 06:51 Alkaline Phosphatase 59 U/L (45-117) 05/13/21 06:51 Lipase 205 U/L (73-393) 05/10/21 21:00 Home Medications: Gemfibrozil [Lopid] 600 mg PO BID #0 tablet 04/26/12 Pravastatin [Pravachol*] 40 mg PO BEDTIME 07/08/14 Levothyroxine [Synthroid*] 50 mcg PO [id number] 11/08/16 Metformin ER [Glucophage ER*] 500 mg PO BID 11/08/16 Metoprolol Tartrate 50 mg PO [id number] 11/08/16 Omeprazole 40 mg PO DAILY 11/08/16 Ascorbic Acid [Vitamin C*] 500 mg PO DAILY 01/17/18 Cholecalciferol (Vitamin D3) [Vitamin D 1000 Iu Tab*] 1,000 unit PO DAILY 01/17/18 Ferrous Sulfate [Iron] 325 mg PO DAILY 01/17/18 Flecainide [Tambocor*] 50 mg PO BID 01/17/18 Rivaroxaban [Xarelto*] 15 mg PO DAILY 01/17/18 Amox/Clavulanate [Augmentin 500-125 mg Tab*] 500 mg PO BID #18 tab 05/14/21 Cefdinir [Cefdinir*] 300 mg PO BID #12 cap 05/14/21 New Medications: Amox/Clavulanate [Augmentin 500-125 mg Tab*] 500 mg PO BID #18 tab Cefdinir [Cefdinir*] 300 mg PO BID #12 cap Physician Discharge Instructions: Patient presented with UTI. CT showed the possibility of passage of recent stone and early pyelonephritis. Patient was admitted for treatment. Patient responded well to antibiotic therapy. Urine culture was positive for E. coli and Enterococcus. After discussion with pharmacy plan of care addressed in detail concerning antibiotic therapy. At discharge the patient will continue with cefdinir 300 mg 1 pill twice daily for 6 days to cover E. coli and Augmentin 500 mg twice daily for 9 days to cover Enterococcus. UTI prevention provided. At discharge recommend to follow-up with PCP within 1 week. Recommend to recheck urine culture within 1 week to monitor resolution. Patient with history of atrial fibrillation on chronic anticoagulation therapy with pacemaker. Overall stable. At discharge she will continue with flecainide 50 mg 1 pill twice daily, metoprolol 50 mg daily, and Xarelto 15 mg daily. Patient with acute on chronic diastolic CHF. During the course of her stay patient received IV fluids. Patient was slightly overloaded with fluids. This was discontinued. Patient required Lasix IV for 2 days. Her condition improved. Patient was able to get off oxygen. Patient ambulating well without oxygen at discharge. Patient reports that she does take diuretic therapy twice a week. Patient will continue with her current diuretic therapy twice a week. Recommend to continue 1500 cc/day fluid restriction and low-salt diet. If her weight increases, edema to the lower extremity worsens or she has some increasin g shortness of breath patient may require adjustment in her diuretic therapy. This can be done with the help of her PCP or nephrology. Patient with diabetes mellitus type 2. At discharge she will continue with her current medication Metformin 500 mg 1 pill twice daily. Recommend to maintain blood sugar less than 140 fasting and less than 200 after meals. Further adjustment can be done by her PCP. Recommend to recheck hemoglobin A1c every 3 months to monitor her progress. This could be done with the help of her PCP. Patient with hyperlipidemia. At discharge patient will continue with Lopid 600 mg 1 pill twice daily and pravastatin 40 mg daily. Patient with hypothyroidism. At discharge we will continue with levothyroxine 50 mcg daily. Patient with GERD. At discharge patient will continue with Prilosec 40 mg daily daily. Patient may also continue with her current medications of iron supplementation, vitamin C and vitamin D daily. Diet: AHA Activity: Fall precautions Followup: Jaswinder Castellanos MD [Primary Care Provider] - Time spent managing pt's care (in minutes): 55
[2021-05-14 17:10] VITALS: BP 140/51; TEMP 98
[2021-05-15] MEDS ORDERED: FUROSEMIDE 20 MG TABLET PO SCH (09:00)
== END 2021-05-14 16:37 | disposition home health service (06) | DRG 689 ==
LOC: ER 19:40 → ERHOLD 05-11 00:49 → 2ND 05-11 02:13 → OBSVTOIN 05-12 10:29
PROVIDERS: ADMIT Family Medicine; ATTEND Family Medicine
DX: N12 Tubulo-interstitial nephritis, not specified as acute or chronic (principal); I50.33 Acute on chronic diastolic (congestive) heart failure; I13.0 Hypertensive heart and chronic kidney disease with heart failure and stage 1 through stage 4 chronic kidney disease, or unspecified chronic kidney disease; E46 Unspecified protein-calorie malnutrition; B96.20 Unspecified Escherichia coli [E. coli] as the cause of diseases classified elsewhere; B95.2 Enterococcus as the cause of diseases classified elsewhere; N18.30 Chronic kidney disease, stage 3 unspecified; E11.22 Type 2 diabetes mellitus with diabetic chronic kidney disease; E11.65 Type 2 diabetes mellitus with hyperglycemia; N17.9 Acute kidney failure, unspecified; E78.5 Hyperlipidemia, unspecified; E03.9 Hypothyroidism, unspecified; K21.9 Gastro-esophageal reflux disease without esophagitis; F41.9 Anxiety disorder, unspecified; I48.91 Unspecified atrial fibrillation; Z79.01 Long term (current) use of anticoagulants; E83.51 Hypocalcemia; Z68.24 Body mass index [BMI] 24.0-24.9, adult; D63.8 Anemia in other chronic diseases classified elsewhere; I70.0 Atherosclerosis of aorta; Z95.0 Presence of cardiac pacemaker; Z85.43 Personal history of malignant neoplasm of ovary; Z20.822 Contact with and (suspected) exposure to COVID-19
CPT/HCPCS: 36415; 71045; 74176; 80048; 80053; 80076; 81003; 81015; 82947; 83690; 83735; 84145; 84439; 84443; 85025; 87077; 87086; 87088; 87186; 93005; 96365; 96367; 97116; 97161; 97530; 99285; G0378; J0692; J1940; J7030; J7040; J7050; U0003